=== PATIENT | female | born 1960 | race American Indian/Alaskan Native ===

== ENCOUNTER 2019-11-14 07:45 | Day surgery (SDC) | payer BC ==
[2019-11-14] MEDS ORDERED: LACTATED RINGERS 1,000 ML IV SCH (09:00)
[2019-11-14] MEDS ORDERED: MIDAZOLAM 2 MG/2 ML INJ IV NR (09:00)
--- NOTE | 2019-11-14 09:06 | Anesthesia Day of Surgery ---
Anesthesia Day of Surgery - Day of Surgery Patient Examined: Yes Patient H&P Reviewed: Yes Patient is NPO: Yes
--- NOTE | 2019-11-14 09:06 | Anesthesia Consultation ---
Anesthesia Consult and Med Hx Date of service: 11/14/19 - Airway Anesthetic Teeth Evaluation: Good ROM Head & Neck: Adequate Mental/Hyoid Distance: Adequate Mallampati Class: Class II Intubation Access Assessment: Good - Pulmonary Exam CTA: Yes - Cardiac Exam Cardiac Exam: RRR - Pre-Operative Health Status ASA Pre-Surgery Classification: ASA1 Proposed Anesthetic Plan: General - Pulmonary SOB: Yes (After running up or walking up stairs) - Central Nervous System Hx Psychiatric Problems: No - Other Systems Hx Alcohol Use: Yes (Occas) Hx Cancer: No
[2019-11-14] MEDS ORDERED: HYDROmorphone 1 MG/1 ML INJ IV PRN (09:07)
[2019-11-14] MEDS ORDERED: ONDANSETRON 4 MG/2 ML INJ IV PRN (09:07)
[2019-11-14] MEDS ORDERED: LIDOCAINE MPF (2%) 20 MG/1 ML VIAL 5 ML ONE (09:50)
[2019-11-14] MEDS ORDERED: PROPOFOL 200 MG/20 ML VIAL IV ONE (09:51)
[2019-11-14] MEDS ORDERED: fentaNYL 100 MCG/2 ML INJ ONE (09:51)
[2019-11-14] MEDS ORDERED: MIDAZOLAM 2 MG/2 ML INJ ONE (09:51)
--- NOTE | 2019-11-14 10:07 | Short Stay Summary ---
Short Stay Documentation Date of service: 11/14/19 Narrative H&P: Pt is a 59 year old female who presented with a single episode of post menopausal bleeding. And EMB was attempted in the office but was unsuccessful due to cervical stenosis. - History Principal diagnosis: Postmenopausal bleeding H&P: obtained from office Past Surgical History: cholecystectomy, Social history: - Allergies and Medications Current Medications: Allergies No Known Allergies Allergy (Unverified 11/12/19 17:17) Home Medications Medication Instructions Recorded Confirmed Last Taken Type No Known Home Medications [No 11/12/19 11/12/19 Unknown History Reported Home Medications] Active Medications Hydromorphone HCl (Dilaudid) 0.5 mg IV Q10MIN PRN PRN Reason: Pain , Severe (7-10) Stop: 11/14/19 23:00 Lactated Ringer's (Lactated Ringers) 1,000 mls @ 100 mls/hr IV DIRECT CRISTI Last Admin: 11/14/19 09:20 Dose: 100 mls/hr Documented by: Midazolam HCl (Versed) 2 mg IV ONCE NR Stop: 11/14/19 13:00 Last Admin: 11/14/19 09:22 Dose: 2 mg Documented by: Ondansetron HCl (Zofran) 4 mg IV ONCE PRN PRN Reason: Nausea And Vomiting Stop: 11/14/19 13:00 - Physical exam General appearance: no acute distress Integumentary: no rash HEENT: Atraumatic Lungs: Clear to auscultation, Normal air movement Breasts: deferred Heart: Regular rate, Normal S1, Normal S2 Gastrointestinal: normal, normoactive bowel sounds Female Genitourinary: other (vaginal atrophy) Extremities: no ischemia, No edema - Brief post op/procedure progress note Date of procedure: 11/14/19 Pre-op diagnosis: Postmenopausal bleeding Post-op diagnosis: same Procedure: D&c with hysteroscopy and polypectomy Anesthesia: MAC Findings: slightly thickened endometrial posterior wall with visible polyp Surgeon: AISHA CASAS Estimated blood loss: minimal Pathology: list (endometrial curretings and polyp) Specimen disposition: to lab Condition: stable - Hospital course Hospital course: unremarkable - Disposition Condition at discharge: Good Disposition: DC-01 TO HOME OR SELFCARE Short Stay Discharge Plan Activity: advance as tolerated Weight Bearing Status: Weight Bear as Tolerated Diet: regular Follow up with: AISHA CASAS MD [Staff Physician] - 14 Days Prescriptions: Ibuprofen [Motrin 800 MG tab] 800 mg PO Q8HR PRN #30 tablet PRN Reason: Pain, Mild (1-3) HYDROcodone/APAP 5-325 [[place] 5/325] 2 each PO Q6HR PRN #15 tablet PRN Reason: Pain
[2019-11-14] MEDS ORDERED: dexAMETHasone 20 MG/5 ML VIAL ONE (10:27)
[2019-11-14] MEDS ORDERED: ONDANSETRON 4 MG/2 ML INJ ONE (10:27)
[2019-11-14] MEDS ORDERED: KETOROLAC 30 MG/1 ML INJ ONE (10:27)
--- NOTE | 2019-11-14 11:20 | Operative Report ---
Operative Report Operative Report: Preoperative diagnoses: Postmenopausal bleeding Postoperative diagnosis: Same Procedure: D and C with hysteroscopy Surgeon: Tata Juarez M.D. Anesthesia: MAC EBL: Minimal Urine output: 100 mL clear Complications: None Specimens: Endometrial and endocervical curettings, polyp Procedure: Patient was taken to the OR with IV running and in place. She will probably identified as herself. She was given adequate anesthesia. She was then placed in the dorsal lithotomy position and prepped and draped in normal sterile fashion. Attention was turned to the patient's vagina. Her bladder was then drained of approximately 100 mL of clear yellow urine. A bivalve speculum was placed the patient's vagina. Cervix was visualized and grasped with a single-tooth tenaculum. The cervix was then gently dilated up to approximately 29 mm. Following this, the hysteroscope was introduced into the cervical canal. The cavity was visualized and there was some thickened endometrium on the posterior wall along with a polyp. The hysteroscope was removed and sharp curettage performed for moderate tissue. There was excellent hemostasis noted at the end of this portion of the procedure. At this point all instruments were removed from the patient's vagina. She was then awakened and taken to recovery in stable condition. She tolerated the procedure well.
[2019-11-14] MEDS ORDERED: HYDROcodone/ACETAMINOPHEN 5-325 MG TAB PO PRN (11:36)
[2019-11-14 11:52] VITALS: BP 139/83
--- NOTE | 2019-11-14 16:03 | Post Anesthesia Evaluation ---
- Post Anesthesia Evaluation Patient Participated: Yes Airway Patent: Yes Stable Respiratory Function: Yes Nausea/Vomiting: No Temp > 96.8F: Yes Pain Manageable: Yes Adequeate Hydration: Yes Anesthesia Complications: No Block Receding Appropriately: Not Applicable Patient on Ventilator: No
== END 2019-11-14 12:30 | disposition home or self-care (01) ==
LOC: OR 07:45
PROVIDERS: ATTEND Obstetrics & Gynecology
DX: N95.0 Postmenopausal bleeding (principal); C54.1 Malignant neoplasm of endometrium; K21.9 Gastro-esophageal reflux disease without esophagitis; Z79.899 Other long term (current) drug therapy; Z98.891 History of uterine scar from previous surgery; Z72.89 Other problems related to lifestyle; Z98.890 Other specified postprocedural states
CPT/HCPCS: 58558; 81025; 88305; 88341; 88342; J1100; J1885; J2250; J2405; J2704; J3010; J7120